=== PATIENT | female | born 1965 | race Caucasian/White ===

== ENCOUNTER 2019-10-30 00:02 | Emergency (ER) | payer OTHER ==
[~2019-10-30] VITALS: Ht 157.5 cm; Wt 63.5 kg
[2019-10-30 00:08] VITALS: BP_SYST 140
--- NOTE | 2019-10-30 00:08 | NUR ---
Patient to ER bed 7 to gown for evaluation. Side rails up. Report given to
--- NOTE | 2019-10-30 00:10 | NUR ---
Pt brought in by self. Pt awake, alert, oriented x4. Pt states that she was taking out the trash tonight and she felt a sharp pain in her upper back. Pt states she has multiple episodes of vomiting after pain started. Pt states that she has no t taken anything for pain or nausea. Pt denies any other medical complaint at this time. Pt resting in ED bed, no acute distress.
--- NOTE | 2019-10-30 00:15 | NUR ---
ER Dr. Huynh at bedside examining patient.
[2019-10-30] MEDS ORDERED: KETOROLAC TROMETHAMINE 60 MG/2 ML VIAL IM ONE (00:30)
[2019-10-30] MEDS ORDERED: ONDANSETRON HCL 4 MG/2 ML VIAL IM ONE (00:30)
--- NOTE | 2019-10-30 00:37 | NUR ---
Pt taken to Xray by dialysis chief equipment technician
--- NOTE | 2019-10-30 00:47 | NUR ---
Pt returned from Xray.
[2019-10-30 01:35] VITALS: BP_SYST 140
--- NOTE | 2019-10-30 01:35 | NUR ---
Patient given written and verbal discharge instructions and verbalizes understanding. ER MD discussed with patient the results and treatment provided. Patient in stable condition. ID arm band removed. No IV Rx of motrin and tramadol given. Patient educated on pain management and to follow up with PMD. Pain Scale 0/10. Opportunity for questions provided and answered. Medication side effect fact sheet provided.
== END 2019-10-30 01:35 | disposition home or self-care (01) ==
LOC: SED 00:02
DX: S29.012A Strain of muscle and tendon of back wall of thorax, initial encounter (principal); X50.9XXA Other and unspecified overexertion or strenuous movements or postures, initial encounter; Y93.89 Activity, other specified; Y92.89 Other specified places as the place of occurrence of the external cause; Y99.8 Other external cause status
CPT/HCPCS: 71045; 72072; 96372; 99284; J1885; J2405